=== PATIENT | male | born 2000 | race Caucasian/White ===

== ENCOUNTER 2025-06-01 15:44 | Observation (INO) ==
--- NOTE | 2025-06-01 16:38 | Emergency Department Note ---
History of Present Illness General Chief complaint: Illness Stated complaint: ENDOSCOPY TODAY, FEVER, CHILLS, BACK PAIN Time Seen by Provider: 06/01/25 16:11 History of Present Illness Provider complaint: Illness Maximum Pain Intensity: 6 25-year-old male presents emergency department for illness. Patient reports that he had an endoscopy performed at [facility] today. He states he was discharged after being told the endoscopy went fine. He states he went home and ate some food. He states that at noon he started having headache nausea and near syncope. Patient reports chills and a fever Tmax 103. He reports he took Tylenol at 1530. He reports back pain after the procedure. Home Medications Medication Instructions Recorded Confirmed Type Tylenol 0 mg PO DIRECTED PRN Pain 06/01/25 06/01/25 History Allergies Allergy/AdvReac Type Severity Reaction Status Date / Time No Known Allergies Allergy Unverified 12/20/24 09:31 Past Med/Surg History Problem List (Updated 06/01/25 @ 22:20 by Phil Bloom MD) Abdominal pain Near syncope Aspiration pneumonia (Acute) Abscess of anal or rectal region Family History (Updated 12/20/24 @ 09:33 by Latoya Wells RN) Grandmother Diabetes Heart disease Grandfather Heart disease Diabetes Social History (Updated 12/20/24 @ 09:33 by Latoya Wells RN) Smoking Status: Never smoker Hx Alcohol Use: No Hx Substance Use: No Preferred Language: Prydein[place] Communication Ability: Effective Foreign Agent Required: No Beliefs That Will Affect Care: None marital status: Single Current Living Situation: Significant Other Current Living Situation Comment: lives in apartment with significant other current occupational status: employed 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 Other Information That Helps Us Care for You: No Feels Safe at Home: Yes Safety Concerns: Feels Safe At This Time Diet: regular during the past year weight has: remained stable Assistive Devices: Glasses Physical Exam Vital Signs Vital Signs - 24 hr 06/01/25 15:44 06/01/25 16:02 06/01/25 16:15 Temperature 37.3 C Temperature Source Temporal Artery Scan Pulse Rate 121 H Pulse Rate [Right Finger] 116 H Pulse Rate from SpO2 Sensor Pulse Rhythm [Right Finger] Respiratory Rate 18 18 Respiratory Effort / Characteristics Non-Labored Respiratory Depth Normal Respiratory Pattern Regular Blood Pressure 97/66 L Blood Pressure [Left Arm] 98/72 L Blood Pressure Mean 76 Blood Pressure Mean [Left Arm] 80 Pulse Oximetry 97 97 97 Oxygen Delivery Method Room Air Room Air Room Air Sepsis Recent Fever Within 48 Hours No Sepsis New/Unexplained Change in Mental Status No Sepsis Action Taken by Nursing No Action Required 06/01/25 16:17 06/01/25 16:18 06/01/25 16:21 Temperature Temperature Source Pulse Rate 106 H 113 H 106 H Pulse Rate [Right Finger] Pulse Rate from SpO2 Sensor Pulse Rhythm [Right Finger] Respiratory Rate 19 24 Respiratory Effort / Characteristics Respiratory Depth Respiratory Pattern Blood Pressure Blood Pressure [Left Arm] Blood Pressure Mean Blood Pressure Mean [Left Arm] Pulse Oximetry Oxygen Delivery Method Sepsis Recent Fever Within 48 Hours Sepsis New/Unexplained Change in Mental Status Sepsis Action Taken by Nursing 06/01/25 16:30 06/01/25 16:30 06/01/25 16:33 Temperature Temperature Source Pulse Rate 104 H 106 H Pulse Rate [Right Finger] 108 H Pulse Rate from SpO2 Sensor 104 H 106 H Pulse Rhythm [Right Finger] Respiratory Rate 18 17 24 Respiratory Effort / Characteristics Respiratory Depth Respiratory Pattern Blood Pressure Blood Pressure [Left Arm] 122/76 Blood Pressure Mean Blood Pressure Mean [Left Arm] 91 Pulse Oximetry 96 95 94 Oxygen Delivery Method Sepsis Recent Fever Within 48 Hours Sepsis New/Unexplained Change in Mental Status Sepsis Action Taken by Nursing 06/01/25 16:52 06/01/25 16:52 06/01/25 16:52 Temperature Temperature Source Pulse Rate Pulse Rate [Right Finger] Pulse Rate from SpO2 Sensor Pulse Rhythm [Right Finger] Respiratory Rate Respiratory Effort / Characteristics Respiratory Depth Respiratory Pattern Blood Pressure 135/95 135/95 135/95 Blood Pressure [Left Arm] Blood Pressure Mean 106 106 106 Blood Pressure Mean [Left Arm] Pulse Oximetry Oxygen Delivery Method Sepsis Recent Fever Within 48 Hours Sepsis New/Unexplained Change in Mental Status Sepsis Action Taken by Nursing 06/01/25 16:52 06/01/25 16:52 06/01/25 16:54 Temperature Temperature Source Pulse Rate 113 H Pulse Rate [Right Finger] Pulse Rate from SpO2 Sensor 114 H Pulse Rhythm [Right Finger] Respiratory Rate 23 Respiratory Effort / Characteristics Respiratory Depth Respiratory Pattern Blood Pressure 135/95 135/95 Blood Pressure [Left Arm] Blood Pressure Mean 106 106 Blood Pressure Mean [Left Arm] Pulse Oximetry 95 Oxygen Delivery Method Sepsis Recent Fever Within 48 Hours Sepsis New/Unexplained Change in Mental Status Sepsis Action Taken by Nursing 06/01/25 17:00 06/01/25 17:01 06/01/25 17:01 Temperature Temperature Source Pulse Rate 107 H Pulse Rate [Right Finger] Pulse Rate from SpO2 Sensor 108 H Pulse Rhythm [Right Finger] Respiratory Rate 21 Respiratory Effort / Characteristics Respiratory Depth Respiratory Pattern Blood Pressure 122/76 122/76 Blood Pressure [Left Arm] Blood Pressure Mean 91 91 Blood Pressure Mean [Left Arm] Pulse Oximetry 96 Oxygen Delivery Method Sepsis Recent Fever Within 48 Hours Sepsis New/Unexplained Change in Mental Status Sepsis Action Taken by Nursing 06/01/25 17:01 06/01/25 17:01 06/01/25 17:01 Temperature Temperature Source Pulse Rate Pulse Rate [Right Finger] Pulse Rate from SpO2 Sensor Pulse Rhythm [Right Finger] Respiratory Rate Respiratory Effort / Characteristics Respiratory Depth Respiratory Pattern Blood Pressure 122/76 122/76 122/76 Blood Pressure [Left Arm] Blood Pressure Mean 91 91 91 Blood Pressure Mean [Left Arm] Pulse Oximetry Oxygen Delivery Method Sepsis Recent Fever Within 48 Hours Sepsis New/Unexplained Change in Mental Status Sepsis Action Taken by Nursing 06/01/25 17:01 06/01/25 17:03 06/01/25 17:12 Temperature Temperature Source Pulse Rate 103 H 106 H Pulse Rate [Right Finger] Pulse Rate from SpO2 Sensor 104 H 107 H Pulse Rhythm [Right Finger] Respiratory Rate 14 24 Respiratory Effort / Characteristics Respiratory Depth Respiratory Pattern Blood Pressure 122/76 Blood Pressure [Left Arm] Blood Pressure Mean 91 Blood Pressure Mean [Left Arm] Pulse Oximetry 97 96 Oxygen Delivery Method Sepsis Recent Fever Within 48 Hours Sepsis New/Unexplained Change in Mental Status Sepsis Action Taken by Nursing 06/01/25 17:15 06/01/25 17:15 06/01/25 17:15 Temperature Temperature Source Pulse Rate 108 H Pulse Rate [Right Finger] 108 H Pulse Rate from SpO2 Sensor 107 H Pulse Rhythm [Right Finger] Respiratory Rate 18 24 Respiratory Effort / Characteristics Respiratory Depth Respiratory Pattern Blood Pressure 126/77 Blood Pressure [Left Arm] 126/77 Blood Pressure Mean 91 Blood Pressure Mean [Left Arm] 93 Pulse Oximetry 95 96 Oxygen Delivery Method Sepsis Recent Fever Within 48 Hours Sepsis New/Unexplained Change in Mental Status Sepsis Action Taken by Nursing 06/01/25 17:15 06/01/25 17:15 06/01/25 17:15 Temperature Temperature Source Pulse Rate Pulse Rate [Right Finger] Pulse Rate from SpO2 Sensor Pulse Rhythm [Right Finger] Respiratory Rate Respiratory Effort / Characteristics Respiratory Depth Respiratory Pattern Blood Pressure 126/77 126/77 126/77 Blood Pressure [Left Arm] Blood Pressure Mean 91 91 91 Blood Pressure Mean [Left Arm] Pulse Oximetry Oxygen Delivery Method Sepsis Recent Fever Within 48 Hours Sepsis New/Unexplained Change in Mental Status Sepsis Action Taken by Nursing 06/01/25 17:15 06/01/25 17:21 06/01/25 17:30 Temperature Temperature Source Pulse Rate 115 H 107 H Pulse Rate [Right Finger] Pulse Rate from SpO2 Sensor 113 H 106 H Pulse Rhythm [Right Finger] Respiratory Rate 18 18 Respiratory Effort / Characteristics Respiratory Depth Respiratory Pattern Blood Pressure 126/77 Blood Pressure [Left Arm] Blood Pressure Mean 91 Blood Pressure Mean [Left Arm] Pulse Oximetry 96 97 Oxygen Delivery Method Sepsis Recent Fever Within 48 Hours Sepsis New/Unexplained Change in Mental Status Sepsis Action Taken by Nursing 06/01/25 17:31 06/01/25 17:31 06/01/25 17:31 Temperature Temperature Source Pulse Rate Pulse Rate [Right Finger] Pulse Rate from SpO2 Sensor Pulse Rhythm [Right Finger] Respiratory Rate Respiratory Effort / Characteristics Respiratory Depth Respiratory Pattern Blood Pressure 119/77 119/77 119/77 Blood Pressure [Left Arm] Blood Pressure Mean 83 83 83 Blood Pressure Mean [Left Arm] Pulse Oximetry Oxygen Delivery Method Sepsis Recent Fever Within 48 Hours Sepsis New/Unexplained Change in Mental Status Sepsis Action Taken by Nursing 06/01/25 17:31 06/01/25 18:29 Temperature Temperature Source Pulse Rate Pulse Rate [Right Finger] 99 H Pulse Rate from SpO2 Sensor Pulse Rhythm [Right Finger] Regular Respiratory Rate 20 Respiratory Effort / Characteristics Non-Labored Spontaneous Respiratory Depth Normal Respiratory Pattern Regular Blood Pressure 119/77 Blood Pressure [Left Arm] 120/78 Blood Pressure Mean 83 Blood Pressure Mean [Left Arm] 92 Pulse Oximetry 97 Oxygen Delivery Method Room Air Sepsis Recent Fever Within 48 Hours Sepsis New/Unexplained Change in Mental Status Sepsis Action Taken by Nursing Physical Exam HENT: Exam performed. - Head: Normocephalic and atraumatic. NECK: Normal range of motion. Neck supple. No JVD present. No rigidity. No tracheal deviation and normal range of motion present. CV: Normal rate, regular rhythm, normal heart sounds and intact distal pulses. There is no peripheral edema. Palpable radial pulses bue. PULM/CHEST: Effort normal and breath sounds normal. No respiratory distress. No stridor. He has no wheezes. He has no rales. ABD: The abdomen is soft. There is no tenderness. There is no rebound, no guarding. NEURO: He is alert and oriented to person, place, and time. He has normal strength. No cranial nerve deficit or sensory deficit. SKIN: Patient appears pale. Course Course 1611: The patient was evaluated in room B2. A complete history and physical exam was performed Cardiac monitoring: An order was placed for continuous cardiac monitoring. The monitor shows a rate of 100 with sinus rhythm interpreted by nv 1745: Vital signs stable. On reassessment patient is resting in no acute distress. No focal neurologic deficits no meningeal signs. CT of the head is within normal limits. CT of the head shows no ICH. CT of the head was conducted within 6-hour of symptom onset effectively ruling out SAH. Imaging of the chest abdomen pelvis shows no evidence of perforation but does make mention of a left-sided infiltrate. Labs are unremarkable. Patient will be treated with Unasyn and admitted for pneumonia most likely secondary to aspiration after his endoscopy today. Administered Medications Acetaminophen (Acetaminophen 500 Mg Tab) 1,000 mg PO Q8H PRN PRN Reason: Fever or headache Stop: 07/01/25 18:51 Last Admin: 06/01/25 19:00 Dose: 1,000 mg Documented By: vijay Sodium Chloride (Nss) 1,000 mls @ 125 mls/hr IV .Q8H [place] Stop: 06/02/25 18:59 Last Admin: 06/01/25 19:00 Dose: 125 mls/hr Documented By: vijay Discontinued Medications Ampicillin Sodium/Sulbactam Sodium (Unasyn) 3,000 mg in 100 mls @ 200 mls/hr IV NOW STA Stop: 06/01/25 18:12 Last Infusion: 06/01/25 18:36 Dose: Infused Documented By: vijay Admin: 06/01/25 18:09 Dose: 200 mls/hr Documented By: ludin Ioversol (Optiray 320 100ml) 90 ml IV ONCE ONE Stop: 06/01/25 16:51 Last Admin: 06/01/25 16:51 Dose: 90 ml Documented By: BRANDON Medical Decision Making Medical Records Attestation: I reviewed the patient's medical records. External medical records were obtained by Lilian manager case from the [employer] system. Patient had a endoscopy performed by Dr. Monique for Dr. Min. [place] patch in the proximal esophagus, Z-line regular, 41 cm from the incisors, normal stomach and examined duodenum. Examined portion of the mid jejunum was normal. Laboratory Data Attestation: I reviewed the patient's lab results. 06/01/25 16:24 06/01/25 16:24 Lab Results 06/01/25 06/01/25 06/01/25 Range/Units 16:24 16:32 16:53 WBC 11.49 H (4.8-10.8) K/ul RBC 4.99 (4.70-6.10) M/uL Hgb 15.4 (14.0-18.0) g/dl POC Hgb 15.6 (14.0-18.0) g/dl Hct 43.9 (42.0-52.0) % POC Hct 46 (42-52) % MCV 88.0 (80.0-100.0) fL MCH 30.9 (25.0-34.0) pg MCHC 35.1 (32.0-36.0) g/dL RDW Std Deviation 40.4 (36.4-46.3) fL RDW Coeff of Jossy 12.6 (11.5-14.5) % Plt Count 258 (130-400) K/uL MPV 9.6 (9.4-12.4) fL Immature Gran % (Auto) 0.3 % Neut % (Auto) 88.7 % Lymph % (Auto) 5.8 % Steele % (Auto) 5.0 % Eos % (Auto) 0.1 % Baso % (Auto) 0.1 % Neut # (Auto) 10.20 H (1.40-6.50) K/uL Lymph # (Auto) 0.67 L (1.20-3.40) K/uL Steele # (Auto) 0.57 (0.11-0.59) K/uL Eos # (Auto) 0.01 (0.00-0.50) K/uL Baso # (Auto) 0.01 (0.00-0.20) K/uL Immature Gran # (Auto) 0.03 (0.01-0.20) K/uL PT 10.3 (9.0-12.0) Seconds INR 1.0 (0.9-1.1) APTT 26 (21-31) Seconds PTT Ratio 1.0 VBG pH (7.36-7.41) VBG pCO2 (38-50) mmHg VBG pO2 mmHg VBG HCO3 mmol/L VBG O2 Saturation % VBG Base Excess mEq/L POC Sodium 141 (135-144) mmol/L Sodium 139 (136-145) mmol/L POC Potassium 3.7 (3.3-5.0) mmol/L Potassium 3.7 (3.5-5.1) mmol/L POC Chloride 104 (101-112) mmol/L Chloride 106 (98-107) mmol/L Carbon Dioxide 24 (21-32) mmol/L POC Total CO2 22 L (24-31) mmol/L Anion Gap 9 (3-11) POC Anion Gap 19.0 (16-25) mmol/L POC BUN 15 (7-18) mg/dl BUN 15 (6-23) mg/dl Creatinine 1.14 (0.6-1.4) mg/dl POC Creatinine 1.3 (0.6-1.3) mg/dl Est Cr Clr Drug Dosing 98.2 ml/min eGFR 90.96 BUN/Creatinine Ratio 13.2 (10-20) Glucose 140 H (70-99(Fasting)) mg/dl POC Glucose (other) 139 H (70-99) mg/dl Lactate 2.0 (0.4-2.0) mmol/L Calcium 9.7 (8.6-10.3) mg/dl POC Ioniz Calcium Chandler 1.18 (1.12-1.32) mmol/l Magnesium 1.7 (1.7-2.4) mg/dl Total Bilirubin 0.6 (0.2-1.0) mg/dl Direct Bilirubin 0.1 (0-0.2) mg/dl AST 27 (13-39) U/L ALT 30 (7-52) U/L Alkaline Phosphatase 68 (34-104) U/L Troponin I High Sens 2.3 (0-20) pg/ml Total Protein 7.6 (6.0-8.3) gm/dl Albumin 4.4 (3.4-5.0) gm/dl Procalcitonin 0.26 (0-0.5) ng/ml Urine Color Urine Appearance (Clear) Urine pH (4.5-7.5) Ur Specific Sanders (1.000-1.030) Urine Protein (Negative) Urine Glucose (UA) (Negative) Urine Ketones (Negative) Urine Blood (Negative) Urine Nitrite (Negative) Urine Bilirubin (Negative) Urine Urobilinogen (Negative) Ur Leukocyte Esterase (Negative) Urine Comment SARS-CoV-2 (PCR) NEGATIVE (Negative) Influenza Type A (PCR) Negative (Neg) Influenza Type B (PCR) Negative (Neg) RSV (RT-PCR) Negative (Neg) 06/01/25 06/01/25 Range/Units 17:40 18:03 WBC (4.8-10.8) K/ul RBC (4.70-6.10) M/uL Hgb (14.0-18.0) g/dl POC Hgb (14.0-18.0) g/dl Hct (42.0-52.0) % POC Hct (42-52) % MCV (80.0-100.0) fL MCH (25.0-34.0) pg MCHC (32.0-36.0) g/dL RDW Std Deviation (36.4-46.3) fL RDW Coeff of Jossy (11.5-14.5) % Plt Count (130-400) K/uL MPV (9.4-12.4) fL Immature Gran % (Auto) % Neut % (Auto) % Lymph % (Auto) % Steele % (Auto) % Eos % (Auto) % Baso % (Auto) % Neut # (Auto) (1.40-6.50) K/uL Lymph # (Auto) (1.20-3.40) K/uL Steele # (Auto) (0.11-0.59) K/uL Eos # (Auto) (0.00-0.50) K/uL Baso # (Auto) (0.00-0.20) K/uL Immature Gran # (Auto) (0.01-0.20) K/uL PT (9.0-12.0) Seconds INR (0.9-1.1) APTT (21-31) Seconds PTT Ratio VBG pH 7.43 H (7.36-7.41) VBG pCO2 35 L (38-50) mmHg VBG pO2 67 mmHg VBG HCO3 23 mmol/L VBG O2 Saturation 95.1 % VBG Base Excess -0.6 mEq/L POC Sodium (135-144) mmol/L Sodium (136-145) mmol/L POC Potassium (3.3-5.0) mmol/L Potassium (3.5-5.1) mmol/L POC Chloride (101-112) mmol/L Chloride (98-107) mmol/L Carbon Dioxide (21-32) mmol/L POC Total CO2 (24-31) mmol/L Anion Gap (3-11) POC Anion Gap (16-25) mmol/L POC BUN (7-18) mg/dl BUN (6-23) mg/dl Creatinine (0.6-1.4) mg/dl POC Creatinine (0.6-1.3) mg/dl Est Cr Clr Drug Dosing ml/min eGFR BUN/Creatinine Ratio (10-20) Glucose (70-99(Fasting)) mg/dl POC Glucose (other) (70-99) mg/dl Lactate (0.4-2.0) mmol/L Calcium (8.6-10.3) mg/dl POC Ioniz Calcium Chandler (1.12-1.32) mmol/l Magnesium (1.7-2.4) mg/dl Total Bilirubin (0.2-1.0) mg/dl Direct Bilirubin (0-0.2) mg/dl AST (13-39) U/L ALT (7-52) U/L Alkaline Phosphatase (34-104) U/L Troponin I High Sens (0-20) pg/ml Total Protein (6.0-8.3) gm/dl Albumin (3.4-5.0) gm/dl Procalcitonin (0-0.5) ng/ml Urine Color Yellow Urine Appearance Clear (Clear) Urine pH 7.5 (4.5-7.5) Ur Specific Sanders > 1.045 H (1.000-1.030) Urine Protein Negative (Negative) Urine Glucose (UA) Negative (Negative) Urine Ketones Negative (Negative) Urine Blood Negative (Negative) Urine Nitrite Negative (Negative) Urine Bilirubin Negative (Negative) Urine Urobilinogen Negative (Negative) Ur Leukocyte Esterase Negative (Negative) Urine Comment SARS-CoV-2 (PCR) (Negative) Influenza Type A (PCR) (Neg) Influenza Type B (PCR) (Neg) RSV (RT-PCR) (Neg) Imaging Data Attestation: I personally reviewed and interpreted this imaging study as follows: My Impression: Chest x-ray negative. Airway clear. No pneumothorax. No consolidation. No cardiomegaly or cephalization.. No free air under the diaphragm. No fractures of the skeletal structures. Radiologist's Impression: Chest CT 06/01/25 16:15 EXAMINATION: CT of the chest, abdomen and pelvis performed after the administration of IV contrast TECHNIQUE: Helical CT images from the lung apices through the symphysis pubis were obtained with contrast. Coronal and sagittal reformatted images were generated at a workstation for further assessment. Dose reduction techniques were achieved by using automatic exposure control and/or adjustment of mA and/or kV according to patient size and/or use of iterative reconstruction technique. COMPARISON: None HISTORY: Pain FINDINGS: Lines and tubes: None Mediastinum/Neck Base: No thyroid nodules. Central tracheobronchial tree is patent. Heart size is normal. No pericardial effusion. Normal thoracic vasculature. No thoracic lymphadenopathy. Oral contrast seen in the esophagus and stomach without abnormal distention. Lungs: Diffuse small nodular opacities throughout the lingula and left lower lobe seen. No pleural effusion or pneumothorax. Liver: No suspicious liver lesions. Portal veins appear patent. Gallbladder: No gallstones. No evidence of acute cholecystitis. Spleen: Normal size. Pancreas: No suspicious pancreatic lesions. The pancreatic duct is not dilated. Adrenal glands: No adrenal nodules. Kidneys: No hydronephrosis or obstructing renal stones. Bladder / Pelvic organs: Unremarkable. Bowel: No bowel obstruction. No abnormal bowel wall thickening. The appendix is unremarkable. Lymph nodes: No retroperitoneal, mesenteric, or pelvic lymphadenopathy. Peritoneum / Retroperitoneum: No free fluid or air within the abdomen. Vessels: No infrarenal aortic aneurysm. Bones and soft tissues: No acute osseous normality. IMPRESSION: Nodular opacities throughout the lingula and left lower lobe, or infectious. There is oral contrast in the esophagus and stomach. No other acute findings in the chest, abdomen or pelvis. Electronically signed by Brandon Ashraf 06-01-2025 5:19 PM Chest X-Ray 06/01/25 16:15 Chest radiograph, one view History: Sepsis Comparison: None Findings: Single AP view of the chest performed. There is a small area of patchy nodular opacity at the left lower lung or lingula. No pneumothorax. The cardiomediastinal silhouette is within normal limits. Normal pulmonary vascularity. No evidence for lymphadenopathy. No visualized bony or soft tissue abnormality. Impression: Findings suggesting infection in the left lower lung or lingula Electronically signed by Brandon Ashraf 06-01-2025 4:43 PM Abdomen/Pelvis CT 06/01/25 16:16 EXAMINATION: CT of the chest, abdomen and pelvis performed after the administration of IV contrast TECHNIQUE: Helical CT images from the lung apices through the symphysis pubis were obtained with contrast. Coronal and sagittal reformatted images were generated at a workstation for further assessment. Dose reduction techniques were achieved by using automatic exposure control and/or adjustment of mA and/or kV according to patient size and/or use of iterative reconstruction technique. COMPARISON: None HISTORY: Pain FINDINGS: Lines and tubes: None Mediastinum/Neck Base: No thyroid nodules. Central tracheobronchial tree is patent. Heart size is normal. No pericardial effusion. Normal thoracic vasculature. No thoracic lymphadenopathy. Oral contrast seen in the esophagus and stomach without abnormal distention. Lungs: Diffuse small nodular opacities throughout the lingula and left lower lobe seen. No pleural effusion or pneumothorax. Liver: No suspicious liver lesions. Portal veins appear patent. Gallbladder: No gallstones. No evidence of acute cholecystitis. Spleen: Normal size. Pancreas: No suspicious pancreatic lesions. The pancreatic duct is not dilated. Adrenal glands: No adrenal nodules. Kidneys: No hydronephrosis or obstructing renal stones. Bladder / Pelvic organs: Unremarkable. Bowel: No bowel obstruction. No abnormal bowel wall thickening. The appendix is unremarkable. Lymph nodes: No retroperitoneal, mesenteric, or pelvic lymphadenopathy. Peritoneum / Retroperitoneum: No free fluid or air within the abdomen. Vessels: No infrarenal aortic aneurysm. Bones and soft tissues: No acute osseous normality. IMPRESSION: Nodular opacities throughout the lingula and left lower lobe, or infectious. There is oral contrast in the esophagus and stomach. No other acute findings in the chest, abdomen or pelvis. Electronically signed by Brandon Ashraf 06-01-2025 5:[address] 06/01/25 16:16 CT head without contrast History: Trauma Comparison: None Technique: Using multidetector thin collimation helical acquisition technique, axial, coronal and sagittal CT images from the skull base to the vertex were obtained without intravenous contrast. Dose reduction techniques were achieved by using automatic exposure control and/or adjustment of mA and/or kV according to patient size and/or use of iterative reconstruction technique. Findings: No intracranial hemorrhage, mass-effect, or midline shift. The ventricles are proportionate to the cerebral sulci. The pacheco to white matter differentiation of the cerebral hemispheres is preserved. The basal cisterns are patent. The visualized paranasal sinuses are clear. Mastoid air cells are clear. Impression: No acute intracranial pathology. Electronically signed by Brandon Ashraf 06-01-2025 5:19 PM ECG Data Attestation: I personally reviewed and interpreted this ECG as follows: Rate (beats per minute): 107 Rhythm: + normal sinus ECG Intervals/blocks: + Normal QRS, + Normal MI and + Normal QT-c ECG ST segments: + Normal ST segments [facility] Narrative 1611: The patient was evaluated in room B2. A complete history and physical exam was performed Cardiac monitoring: An order was placed for continuous cardiac monitoring. The monitor shows a rate of 100 with sinus rhythm interpreted by nv [id number]: Vital signs stable. On reassessment patient is resting in no acute distress. No focal neurologic deficits no meningeal signs. CT of the head is within normal limits. CT of the head shows no ICH. CT of the head was conducted within 6-hour of symptom onset effectively ruling out SAH. Imaging of the chest abdomen pelvis shows no evidence of perforation but does make mention of a left-sided infiltrate. Labs are unremarkable. Patient will be treated with Unasyn and admitted for pneumonia most likely secondary to aspiration after his endoscopy today. Impression & Plan Aspiration pneumonia Discharge Plan Visit Data Chief Complaint: Illness Stated Complaint: ENDOSCOPY TODAY, FEVER, CHILLS, BACK PAIN ED Provider: Phil Bloom Discharge Problem: Aspiration pneumonia Patient Disposition: Admitted As Inpatient Condition: Fair Discharge Instructions Interventions: ED Discharge Assessment Last Done: 06/01/25 19:53 Discharge Problem: Aspiration pneumonia Qualifiers: Aspiration pneumonia type: unspecified Laterality: unspecified laterality Lung location: unspecified part of lung Qualified Code(s): J69.0 - Pneumonitis due to inhalation of food and vomit
--- NOTE | 2025-06-01 16:43 | XRay Report ---
Chest radiograph, one view History: Sepsis Comparison: None Findings: Single AP view of the chest performed. There is a small area of patchy nodular opacity at the left lower lung or lingula. No pneumothorax. The cardiomediastinal silhouette is within normal limits. Normal pulmonary vascularity. No evidence for lymphadenopathy. No visualized bony or soft tissue abnormality. Impression: Findings suggesting infection in the left lower lung or lingula Electronically signed by Brnadon Ashraf 06-01-2025 4:43 PM
[2025-06-01 16:45] LABS: Hematocrit (blood only) 43.9 % (42.0-52.0); Hemoglobin 15.4 g/dl (14.0-18.0); Immature Granulocytes # (auto) 0.03 K/uL (0.01-0.20); Immature Granulocytes % (auto) 0.3 %; Mean Corpuscular Hemoglobin 30.9 pg (25.0-34.0); Mean Corpuscular Volume 88.0 fL (80.0-100.0); Platelet Count 258 K/uL (130-400); RDW Standard Deviation 40.4 fL (36.4-46.3); Red Blood Count 4.99 M/uL (4.70-6.10); White Blood Count 11.49 K/ul (4.8-10.8)
[2025-06-01] MEDS: OPTIRAY 320 100ml IV ONE (16:51)
[2025-06-01 17:03] LABS: Alanine Aminotransferase 30.0 U/L (7-52); Albumin Level 4.4 gm/dl (3.4-5.0); Alkaline Phosphatase 68.0 U/L (34-104); Anion Gap 9.0 (3-11); Bilirubin,Total 0.6 mg/dl (0.2-1.0); Blood Urea Nitrogen 15.0 mg/dl (6-23); Calcium 9.7 mg/dl (8.6-10.3); Carbon Dioxide 24.0 mmol/L (21-32); Chloride 106.0 mmol/L (98-107); Creatinine Clr Calc Pharmacy 98.2 ml/min; Glucose 140.0 mg/dl (70-99(Fasting)); Magnesium 1.7 mg/dl (1.7-2.4); Potassium 3.7 mmol/L (3.5-5.1); Sodium 139.0 mmol/L (136-145); Total Protein 7.6 gm/dl (6.0-8.3)
[2025-06-01 17:14] LABS: INR 1.0 (0.9-1.1); Partial Thromboplastin Time 26 Seconds (21-31); Prothrombin Time 10.3 Seconds (9.0-12.0)
--- NOTE | 2025-06-01 17:20 | CT Scan Report ---
CT head without contrast History: Trauma Comparison: None Technique: Using multidetector thin collimation helical acquisition technique, axial, coronal and sagittal CT images from the skull base to the vertex were obtained without intravenous contrast. Dose reduction techniques were achieved by using automatic exposure control and/or adjustment of mA and/or kV according to patient size and/or use of iterative reconstruction technique. Findings: No intracranial hemorrhage, mass-effect, or midline shift. The ventricles are proportionate to the cerebral sulci. The pacheco to white matter differentiation of the cerebral hemispheres is preserved. The basal cisterns are patent. The visualized paranasal sinuses are clear. Mastoid air cells are clear. Impression: No acute intracranial pathology. Electronically signed by Brandon Ashraf 06-01-2025 5:19 PM
--- NOTE | 2025-06-01 17:21 | CT Scan Report ---
EXAMINATION: CT of the chest, abdomen and pelvis performed after the administration of IV contrast TECHNIQUE: Helical CT images from the lung apices through the symphysis pubis were obtained with contrast. Coronal and sagittal reformatted images were generated at a workstation for further assessment. Dose reduction techniques were achieved by using automatic exposure control and/or adjustment of mA and/or kV according to patient size and/or use of iterative reconstruction technique. COMPARISON: None HISTORY: Pain FINDINGS: Lines and tubes: None Mediastinum/Neck Base: No thyroid nodules. Central tracheobronchial tree is patent. Heart size is normal. No pericardial effusion. Normal thoracic vasculature. No thoracic lymphadenopathy. Oral contrast seen in the esophagus and stomach without abnormal distention. Lungs: Diffuse small nodular opacities throughout the lingula and left lower lobe seen. No pleural effusion or pneumothorax. Liver: No suspicious liver lesions. Portal veins appear patent. Gallbladder: No gallstones. No evidence of acute cholecystitis. Spleen: Normal size. Pancreas: No suspicious pancreatic lesions. The pancreatic duct is not dilated. Adrenal glands: No adrenal nodules. Kidneys: No hydronephrosis or obstructing renal stones. Bladder / Pelvic organs: Unremarkable. Bowel: No bowel obstruction. No abnormal bowel wall thickening. The appendix is unremarkable. Lymph nodes: No retroperitoneal, mesenteric, or pelvic lymphadenopathy. Peritoneum / Retroperitoneum: No free fluid or air within the abdomen. Vessels: No infrarenal aortic aneurysm. Bones and soft tissues: No acute osseous normality. IMPRESSION: Nodular opacities throughout the lingula and left lower lobe, or infectious. There is oral contrast in the esophagus and stomach. No other acute findings in the chest, abdomen or pelvis. Electronically signed by Brandon Ashraf 06-01-2025 5:20 PM
[2025-06-01 17:44] LABS: Influenza A virus by PCR Negative (Neg); Influenza B virus by PCR Negative (Neg); SARS CoV2 RNA(COVID-19) Ceph NEGATIVE (Negative)
[2025-06-01 17:59] LABS: Base Excess VBG -0.6 mEq/L; HCO3 VBG 23 mmol/L; Oxygen Saturation VBG 95.1 %; PCO2 VBG 35 mmHg (38-50); PO2 VBG 67 mmHg; pH VBG 7.43 (7.36-7.41)
[2025-06-01] MEDS: AMPICILLIN/SULBACTAM SOD 3,000 MG/100 ML BAG IV STA (18:09)
[2025-06-01 18:28] LABS: Appearance Urine Clear (Clear); Glucose Urine UA Negative (Negative)
[2025-06-01] MEDS: ACETAMINOPHEN 500 MG TAB PO PRN (19:00)
[2025-06-01] MEDS: SODIUM CHLORIDE 0.9% 1,000 ML IV SCH (19:00)
--- NOTE | 2025-06-01 19:04 | History & Physical Report ---
Date of Service June 01, 2025 Assessment & Plan (1) Aspiration pneumonia: Plan: Status post EGD at around 8:30 AM Ate before noon and started to have shaking chills at around that time with cough CT of the chest showed nodular opacities throughout the lingula and left lower lobe suspected of aspiration pneumonia Blood cultures are taken and he was started with intravenous Unasyn which will be continued Will give IV fluid Likely discharge tomorrow with oral antibiotic (2) Near syncope: Plan: Likely secondary to dehydration CT of the head has been negative Did not have any food or drink throughout the morning for endoscopy This happened while he was in the bathroom without any loss of consciousness Will give some IV fluid Monitor BMP in the morning (3) Abdominal pain: Plan: History of abdominal pain with food for about 2 years Endoscopy was done to evaluate/rule out intestinal disease like Crohn's He was told that thing endoscopy was unremarkable Also complained to have diarrhea and constipation associated with this pain for 2 years as well without any loss of weight Under care of GI and was advised to have follow-up appointment with them following discharge CT of the abdomen pelvis remains unremarkable DVT prophylaxis SCDs and ambulation CODE STATUS Full History of Present Illness Chief Complaint: Shaking chills with near syncope Primary Care Provider: Alex Osman MD He is a 25 years old male without significant past medical history apparently has had an endoscopy in [place] as an outpatient around 8:30 this morning. He has been suffering from abdominal pain with food with change in bowel habit consisting of constipation and diarrhea for about 2 years without any loss of weight. His endoscopy came out unremarkable and he came back from [place]. He has had his lunch and after after that around noon time he felt cough with shaking chills and while in the bathroom he was almost passing out. Noted to have fever of 103 F at home and at that point he was brought into the emergency room. Denies any chest pain and/or palpitation, did have cough without any phlegm and denies any abdominal pain nausea and/or vomiting. CT of the chest showed nodular opacities throughout the lingula and left lower lobe suggestive of aspiration pneumonia. He was started with intravenous Unasyn after taking blood cultures and was admitted to medical floor for continuation of care. Allergies Allergy/AdvReac Type Severity Reaction Status Date / Time No Known Allergies Allergy Unverified 12/20/24 09:31 Home Medications Medication Instructions Recorded Confirmed Type Tylenol 0 mg PO DIRECTED PRN Pain 06/01/25 06/01/25 History Past Med/Surg History Problem List (Updated 06/01/25 @ 18:57 by Marcy Reynolds MD) Abdominal pain Near syncope Aspiration pneumonia Abscess of anal or rectal region Family History (Updated 12/20/24 @ 09:33 by Latoya Wells, RN) Grandmother Diabetes Heart disease Grandfather Heart disease Diabetes Social History (Updated 12/20/24 @ 09:33 by Latoya Wells, RN) Smoking Status: Never smoker Preferred Language: Dominican marital status: Single current occupational status: employed current occupation: [employer] Feels Safe at Home: Yes Diet: regular during the past year weight has: remained stable Review of Systems Review of Systems: All systems reviewed and are unremarkable except as noted below Physical Exam Physical Exam: Lying in bed without any acute distress Constitutional: well developed, well nourished and average body habitus; not ill appearing Eyes: PERRL, conjunctivae normal, anicteric sclerae ENMT: external ear and nose normal, oropharynx normal Neck: trachea midline, no thyromegaly Respiratory: no respiratory distress Auscultation: + diminished lung sounds (Left midlung and base) and + crackles (Left base) Cardiovascular: Rate/Rhythm: regular rate and regular rhythm; not tachycardic Heart Sounds: normal S1 and normal S2; no murmur Extremities: no edema Gastrointestinal (Abdomen): Inspection/Auscultation: normal bowel sounds; abdomen not distended Percussion/Palpation: abdomen soft; abdomen nontender Musculoskeletal: No acute arthritis involving any of the joints Neurologic: normal touch/pain/proprioception and moves all extremities; no focal motor deficits Psychiatric: A+Ox3, euthymic affect Lymphatic: no cervical or axillary lymphadenopathy Results & Data Results & Data Vital Signs (Past 12 Hours) Vital Signs Temp Pulse Pulse Resp BP BP Pulse Ox 06/01/25 18:29 99 H 20 120/78 97 06/01/25 17:31 119/77 06/01/25 17:31 119/77 06/01/25 17:31 119/77 06/01/25 17:31 119/77 06/01/25 17:30 107 H 18 97 06/01/25 17:21 115 H 18 96 06/01/25 17:15 126/77 06/01/25 17:15 126/77 06/01/25 17:15 126/77 06/01/25 17:15 126/77 06/01/25 17:15 126/77 06/01/25 17:15 108 H 24 96 06/01/25 17:15 108 H 18 126/77 95 06/01/25 17:12 106 H 24 96 06/01/25 17:03 103 H 14 97 06/01/25 17:01 122/76 06/01/25 17:01 122/76 06/01/25 17:01 122/76 06/01/25 17:01 122/76 06/01/25 17:01 122/76 06/01/25 17:01 122/76 06/01/25 17:00 107 H 21 96 06/01/25 16:54 113 H 23 95 06/01/25 16:52 135/95 06/01/25 16:52 135/95 06/01/25 16:52 135/95 06/01/25 16:52 135/95 06/01/25 16:52 135/95 06/01/25 16:33 106 H 24 94 06/01/25 16:30 104 H 17 95 06/01/25 16:30 108 H 18 122/76 96 06/01/25 16:21 106 H 24 06/01/25 16:18 113 H 19 06/01/25 16:17 106 H 06/01/25 16:15 97 06/01/25 16:02 37.3 C 121 H 18 97/66 L 97 06/01/25 15:44 116 H 18 98/72 L 97 O2 Del Method 06/01/25 18:29 Room Air 06/01/25 17:31 06/01/25 17:31 06/01/25 17:31 06/01/25 17:31 06/01/25 17:30 06/01/25 17:21 06/01/25 17:15 06/01/25 17:15 06/01/25 17:15 06/01/25 17:15 06/01/25 17:15 06/01/25 17:15 06/01/25 17:15 06/01/25 17:12 06/01/25 17:03 06/01/25 17:01 06/01/25 17:01 06/01/25 17:01 06/01/25 17:01 06/01/25 17:01 06/01/25 17:01 06/01/25 17:00 06/01/25 16:54 06/01/25 16:52 06/01/25 16:52 06/01/25 16:52 06/01/25 16:52 06/01/25 16:52 06/01/25 16:33 06/01/25 16:30 06/01/25 16:30 06/01/25 16:21 06/01/25 16:18 06/01/25 16:17 06/01/25 16:15 Room Air 06/01/25 16:02 Room Air 06/01/25 15:44 Room Air Laboratory Results Short CBC 06/01/25 Range/Units 16:24 WBC 11.49 H (4.8-10.8) K/ul Hgb 15.4 (14.0-18.0) g/dl Hct 43.9 (42.0-52.0) % Plt Count 258 (130-400) K/uL BMP 06/01/25 16:24 Sodium 139 Potassium 3.7 Chloride 106 Carbon Dioxide 24 BUN 15 Creatinine 1.14 Glucose 140 H Calcium 9.7 Liver Function 06/01/25 Range/Units 16:24 Total Bilirubin 0.6 (0.2-1.0) mg/dl Direct Bilirubin 0.1 (0-0.2) mg/dl AST 27 (13-39) U/L ALT 30 (7-52) U/L Alkaline Phosphatase 68 (34-104) U/L Albumin 4.4 (3.4-5.0) gm/dl Urine 06/01/25 Range/Units 18:03 Urine Color Yellow Urine Appearance Clear (Clear) Urine pH 7.5 (4.5-7.5) Ur Specific Geyser > 1.045 H (1.000-1.030) Urine Protein Negative (Negative) Urine Glucose (UA) Negative (Negative) Diagnostic Findings Laboratory Results WBC 11.49 K/ul (4.8-10.8) H 06/01/25 16:24 RBC 4.99 M/uL (4.70-6.10) 06/01/25 16:24 Hgb 15.4 g/dl (14.0-18.0) 06/01/25 16:24 POC Hgb 15.6 g/dl (14.0-18.0) 06/01/25 16:32 Hct 43.9 % (42.0-52.0) 06/01/25 16:24 POC Hct 46 % (42-52) 06/01/25 16:32 MCV 88.0 fL (80.0-100.0) 06/01/25 16:24 MCH 30.9 pg (25.0-34.0) 06/01/25 16:24 MCHC 35.1 g/dL (32.0-36.0) 06/01/25 16: RDW Std Deviation 40.4 fL (36.4-46.3) 06/01/25 16: RDW Coeff of Jossy 12.6 % (11.5-14.5) 06/01/25 16:24 Plt Count 258 K/uL (130-400) 06/01/25 16: MPV 9.6 fL (9.4-12.4) 06/01/25 16:24 Immature Gran % (Auto) 0.3 % 06/01/25 16:24 Neut % (Auto) 88.7 % 06/01/25 16:24 Lymph % (Auto) 5.8 % 06/01/25 16:24 Cameron % (Auto) 5.0 % 06/01/25 16:24 Eos % (Auto) 0.1 % 06/01/25 16:24 Baso % (Auto) 0.1 % 06/01/25 16:24 Neut # (Auto) 10.20 K/uL (1.40-6.50) H 06/01/25 16:24 Lymph # (Auto) 0.67 K/uL (1.20-3.40) L 06/01/25 16:24 Cameron # (Auto) 0.57 K/uL (0.11-0.59) 06/01/25 16:24 Eos # (Auto) 0.01 K/uL (0.00-0.50) 06/01/25 16:24 Baso # (Auto) 0.01 K/uL (0.00-0.20) 06/01/25 16:24 Immature Gran # (Auto) 0.03 K/uL (0.01-0.20) 06/01/25 16:24 PT 10.3 Seconds (9.0-12.0) 06/01/25 16:24 INR 1.0 (0.9-1.1) 06/01/25 16:24 APTT 26 Seconds (21-31) 06/01/25 16:24 PTT Ratio 1.0 06/01/25 16:24 VBG pH 7.43 (7.36-7.41) H 06/01/25 17:40 VBG pCO2 35 mmHg (38-50) L 06/01/25 17:40 VBG pO2 67 mmHg 06/01/25 17:40 VBG HCO3 23 mmol/L 06/01/25 17:40 VBG O2 Saturation 95.1 % 06/01/25 17:40 VBG Base Excess -0.6 mEq/L 06/01/25 17:40 POC Sodium 141 mmol/L (135-144) 06/01/25 16:32 Sodium 139 mmol/L (136-145) 06/01/25 16:24 POC Potassium 3.7 mmol/L (3.3-5.0) 06/01/25 16:32 Potassium 3.7 mmol/L (3.5-5.1) 06/01/25 16:24 POC Chloride 104 mmol/L (101-112) 06/01/25 16:32 Chloride 106 mmol/L (98-107) 06/01/25 16:24 Carbon Dioxide 24 mmol/L (21-32) 06/01/25 16:24 POC Total CO2 22 mmol/L (24-31) L 06/01/25 16:32 Anion Gap 9 (3-11) 06/01/25 16:24 POC Anion Gap 19.0 mmol/L (16-25) 06/01/25 16:32 POC BUN 15 mg/dl (7-18) 06/01/25 16:32 BUN 15 mg/dl (6-23) 06/01/25 16:24 Creatinine 1.14 mg/dl (0.6-1.4) 06/01/25 16:24 POC Creatinine 1.3 mg/dl (0.6-1.3) 06/01/25 16:32 Est Cr Clr Drug Dosing 98.2 ml/min 06/01/25 16:24 eGFR 90.96 06/01/25 16:24 BUN/Creatinine Ratio 13.2 (10-20) 06/01/25 16:24 Glucose 140 mg/dl (70-99(Fasting)) H 06/01/25 16:24 POC Glucose (other) 139 mg/dl (70-99) H 06/01/25 16:32 Lactate 2.0 mmol/L (0.4-2.0) 06/01/25 16:24 Calcium 9.7 mg/dl (8.6-10.3) 06/01/25 16:24 POC Ioniz Calcium Chandler 1.18 mmol/l (1.12-1.32) 06/01/25 16:32 Magnesium 1.7 mg/dl (1.7-2.4) 06/01/25 16:24 Total Bilirubin 0.6 mg/dl (0.2-1.0) 06/01/25 16:24 Direct Bilirubin 0.1 mg/dl (0-0.2) 06/01/25 16:24 AST 27 U/L (13-39) 06/01/25 16:24 ALT 30 U/L (7-52) 06/01/25 16:24 Alkaline Phosphatase 68 U/L (34-104) 06/01/25 16:24 Troponin I High Sens 2.3 pg/ml (0-20) 06/01/25 16:24 Total Protein 7.6 gm/dl (6.0-8.3) 06/01/25 16:24 Albumin 4.4 gm/dl (3.4-5.0) 06/01/25 16:24 Procalcitonin 0.26 ng/ml (0-0.5) 06/01/25 16:24 Urine Color Yellow 06/01/25 18:03 Urine Appearance Clear (Clear) 06/01/25 18:03 Urine pH 7.5 (4.5-7.5) 06/01/25 18:03 Ur Specific Geyser > 1.045 (1.000-1.030) H 06/01/25 18:03 Urine Protein Negative (Negative) 06/01/25 18:03 Urine Glucose (UA) Negative (Negative) 06/01/25 18:03 Urine Ketones Negative (Negative) 06/01/25 18:03 Urine Blood Negative (Negative) 06/01/25 18:03 Urine Nitrite Negative (Negative) 06/01/25 18:03 Urine Bilirubin Negative (Negative) 06/01/25 18:03 Urine Urobilinogen Negative (Negative) 06/01/25 18:03 Ur Leukocyte Esterase Negative (Negative) 06/01/25 18:03 Urine Comment 06/01/25 18:03 SARS-CoV-2 (PCR) NEGATIVE (Negative) 06/01/25 16:53 Influenza Type A (PCR) Negative (Neg) 06/01/25 16:53 Influenza Type B (PCR) Negative (Neg) 06/01/25 16:53 RSV (RT-PCR) Negative (Neg) 06/01/25 16:[address] 06/01/25 16:15 EXAMINATION: CT of the chest, abdomen and pelvis performed after the administration of IV contrast TECHNIQUE: Helical CT images from the lung apices through the symphysis pubis were obtained with contrast. Coronal and sagittal reformatted images were generated at a workstation for further assessment. Dose reduction techniques were achieved by using automatic exposure control and/or adjustment of mA and/or kV according to patient size and/or use of iterative reconstruction technique. COMPARISON: None HISTORY: Pain FINDINGS: Lines and tubes: None Mediastinum/Neck Base: No thyroid nodules. Central tracheobronchial tree is patent. Heart size is normal. No pericardial effusion. Normal thoracic vasculature. No thoracic lymphadenopathy. Oral contrast seen in the esophagus and stomach without abnormal distention. Lungs: Diffuse small nodular opacities throughout the lingula and left lower lobe seen. No pleural effusion or pneumothorax. Liver: No suspicious liver lesions. Portal veins appear patent. Gallbladder: No gallstones. No evidence of acute cholecystitis. Spleen: Normal size. Pancreas: No suspicious pancreatic lesions. The pancreatic duct is not dilated. Adrenal glands: No adrenal nodules. Kidneys: No hydronephrosis or obstructing renal stones. Bladder / Pelvic organs: Unremarkable. Bowel: No bowel obstruction. No abnormal bowel wall thickening. The appendix is unremarkable. Lymph nodes: No retroperitoneal, mesenteric, or pelvic lymphadenopathy. Peritoneum / Retroperitoneum: No free fluid or air within the abdomen. Vessels: No infrarenal aortic aneurysm. Bones and soft tissues: No acute osseous normality. IMPRESSION: Nodular opacities throughout the lingula and left lower lobe, or infectious. There is oral contrast in the esophagus and stomach. No other acute findings in the chest, abdomen or pelvis. Electronically signed by Brandon Ashraf 06-01-2025 5:19 PM Chest X-Ray 06/01/25 16:15 Chest radiograph, one view History: Sepsis Comparison: None Findings: Single AP view of the chest performed. There is a small area of patchy nodular opacity at the left lower lung or lingula. No pneumothorax. The cardiomediastinal silhouette is within normal limits. Normal pulmonary vascularity. No evidence for lymphadenopathy. No visualized bony or soft tissue abnormality. Impression: Findings suggesting infection in the left lower lung or lingula Electronically signed by Brandon Ashraf 06-01-2025 4:43 PM Abdomen/Pelvis CT 06/01/25 16:16 EXAMINATION: CT of the chest, abdomen and pelvis performed after the administration of IV contrast TECHNIQUE: Helical CT images from the lung apices through the symphysis pubis were obtained with contrast. Coronal and sagittal reformatted images were generated at a workstation for further assessment. Dose reduction techniques were achieved by using automatic exposure control and/or adjustment of mA and/or kV according to patient size and/or use of iterative reconstruction technique. COMPARISON: None HISTORY: Pain FINDINGS: Lines and tubes: None Mediastinum/Neck Base: No thyroid nodules. Central tracheobronchial tree is patent. Heart size is normal. No pericardial effusion. Normal thoracic vasculature. No thoracic lymphadenopathy. Oral contrast seen in the esophagus and stomach without abnormal distention. Lungs: Diffuse small nodular opacities throughout the lingula and left lower lobe seen. No pleural effusion or pneumothorax. Liver: No suspicious liver lesions. Portal veins appear patent. Gallbladder: No gallstones. No evidence of acute cholecystitis. Spleen: Normal size. Pancreas: No suspicious pancreatic lesions. The pancreatic duct is not dilated. Adrenal glands: No adrenal nodules. Kidneys: No hydronephrosis or obstructing renal stones. Bladder / Pelvic organs: Unremarkable. Bowel: No bowel obstruction. No abnormal bowel wall thickening. The appendix is unremarkable. Lymph nodes: No retroperitoneal, mesenteric, or pelvic lymphadenopathy. Peritoneum / Retroperitoneum: No free fluid or air within the abdomen. Vessels: No infrarenal aortic aneurysm. Bones and soft tissues: No acute osseous normality. IMPRESSION: Nodular opacities throughout the lingula and left lower lobe, or infectious. There is oral contrast in the esophagus and stomach. No other acute findings in the chest, abdomen or pelvis. Electronically signed by Brandon Ashraf 06-01-2025 5:[address] 06/01/25 16:16 CT head without contrast History: Trauma Comparison: None Technique: Using multidetector thin collimation helical acquisition technique, axial, coronal and sagittal CT images from the skull base to the vertex were obtained without intravenous contrast. Dose reduction techniques were achieved by using automatic exposure control and/or adjustment of mA and/or kV according to patient size and/or use of iterative reconstruction technique. Findings: No intracranial hemorrhage, mass-effect, or midline shift. The ventricles are proportionate to the cerebral sulci. The pacheco to white matter differentiation of the cerebral hemispheres is preserved. The basal cisterns are patent. The visualized paranasal sinuses are clear. Mastoid air cells are clear. Impression: No acute intracranial pathology. Electronically signed by Brandon Ashraf 06-01-2025 5:19 PM Medications Administered Current Inpatient Medications Acetaminophen (Acetaminophen 500 Mg Tab) 1,000 mg PO Q8H PRN PRN Reason: Fever or headache Stop: 07/01/25 18:51 Ampicillin Sodium/Sulbactam Sodium (Unasyn) 3,000 mg in 100 mls @ 200 mls/hr IV Q6H [place] Stop: 06/07/25 00:00 Sodium Chloride (Nss) 1,000 mls @ 125 mls/hr IV .Q8H [place] Stop: 06/02/25 18:59 Code Status & VTE Plan VTE Prophylaxis Plan VTE Prophylaxis will be ordered: Yes
[2025-06-01] MEDS: AMPICILLIN/SULBACTAM SOD 3,000 MG/100 ML BAG IV SCH (23:22)
[2025-06-02 07:29] LABS: Hematocrit (blood only) 39.5 % (42.0-52.0); Hemoglobin 13.7 g/dl (14.0-18.0); Immature Granulocytes # (auto) 0.06 K/uL (0.01-0.20); Immature Granulocytes % (auto) 0.4 %; Mean Corpuscular Hemoglobin 31.1 pg (25.0-34.0); Mean Corpuscular Volume 89.8 fL (80.0-100.0); Platelet Count 237 K/uL (130-400); RDW Standard Deviation 41.6 fL (36.4-46.3); Red Blood Count 4.40 M/uL (4.70-6.10); White Blood Count 13.37 K/ul (4.8-10.8)
[2025-06-02 07:58] LABS: Anion Gap 6.0 (3-11); Blood Urea Nitrogen 12.0 mg/dl (6-23); Calcium 9.0 mg/dl (8.6-10.3); Carbon Dioxide 26.0 mmol/L (21-32); Chloride 108.0 mmol/L (98-107); Creatinine Clr Calc Pharmacy 101.8 ml/min; Glucose 103.0 mg/dl (70-99(Fasting)); Potassium 4.4 mmol/L (3.5-5.1); Sodium 140.0 mmol/L (136-145)
--- NOTE | 2025-06-02 12:25 | XRay Report ---
XR chest 2V PA/lateral CLINICAL HISTORY: Pneumonia. COMPARISON STUDY: Chest radiograph and chest CT June 01, 2025. FINDINGS: Lung volumes are normal. There is no pneumothorax or pleural effusion. Moderate left lower lobe and lingular lobe and lingular opacities are unchanged. Right lung is clear. Cardiac size is nor mal. Mediastinal contours are normal. IMPRESSION: No significant change in left lower and lingular airspace opacities consistent with pneu monia. ACT 112: Negative or not required by law. Electronically signed by: Bartolo Dominguez M.D. 06/02/2025 12:24 PM
--- NOTE | 2025-06-02 13:13 | Hospitalist Progress Note ---
Date of Service June 02, 2025 Assessment & Plan (1) Aspiration pneumonia: Plan: Status post EGD at around 8:30 AM Ate before noon and started to have shaking chills at around that time with cough CT of the chest showed nodular opacities throughout the lingula and left lower lobe suspected of aspiration pneumonia Blood cultures are taken and he was started with intravenous Unasyn which will be continued Will give IV fluid Clinically much better blood pressure remains on the lower side without any symptoms Repeat chest x-ray did not show any worsening of pneumonia White count remains elevated and blood cultures are not back yet Given recent endoscopic procedure will wait for the blood culture to come back before discharge Will continue current antibiotic and possible discharge tomorrow (2) Near syncope: Plan: Likely secondary to dehydration CT of the head has been negative Did not have any food or drink throughout the morning for endoscopy This happened while he was in the bathroom without any loss of consciousness Will give some IV fluid Monitor BMP in the morning Blood pressure remains stable on the lower side and no more dizziness (3) Abdominal pain: Plan: History of abdominal pain with food for about 2 years Endoscopy was done to evaluate/rule out intestinal disease like Crohn's He was told that thing endoscopy was unremarkable Also complained to have diarrhea and constipation associated with this pain for 2 years as well without any loss of weight Under care of GI and was advised to have follow-up appointment with them following discharge CT of the abdomen pelvis remains unremarkable Denies any abdominal pain DVT prophylaxis SCDs and ambulation CODE STATUS Full Admission and Anticipated Discharge Date Admission Date: June 01, 2025 Subjective 06/02/2025 The patient was seen and examined in medical telemetry unit in presence of the family member He has been feeling better with minimal cough and no chest pain and no palpitation Denies any fever and/or chills Review of Systems Review of Systems: All systems reviewed and are unremarkable except as noted below Physical Exam Physical Exam: Lying in bed without any acute distress Constitutional: well developed, well nourished and average body habitus; not ill appearing Eyes: PERRL, conjunctivae normal, anicteric sclerae ENMT: external ear and nose normal, oropharynx normal Neck: trachea midline, no thyromegaly Respiratory: no respiratory distress Auscultation: + diminished lung sounds (Left midlung and base) and + crackles (Left base) Cardiovascular: Rate/Rhythm: regular rate and regular rhythm; not tachycardic Heart Sounds: normal S1 and normal S2; no murmur Extremities: no edema Gastrointestinal (Abdomen): Inspection/Auscultation: normal bowel sounds; abdomen not distended Percussion/Palpation: abdomen soft; abdomen nontender Neurologic: normal touch/pain/proprioception and moves all extremities; no focal motor deficits Psychiatric: A+Ox3, euthymic affect Lymphatic: no cervical or axillary lymphadenopathy Results & Data Results & Data Vital Signs (Past 12 Hours) Vital Signs Temp Pulse Pulse Resp BP Pulse Ox O2 Del Method 06/02/25 11:39 36.7 C 85 17 117/78 98 Room Air 06/02/25 08:17 36.7 C 84 18 105/64 96 Room Air 06/02/25 08:00 81 06/02/25 02:51 36.8 C 72 20 106/71 96 Room Air Laboratory Results Short CBC 06/01/25 06/02/25 Range/Units 16:24 06:12 WBC 11.49 H 13.37 H (4.8-10.8) K/ul Hgb 15.4 13.7 L (14.0-18.0) g/dl Hct 43.9 39.5 L (42.0-52.0) % Plt Count 258 237 (130-400) K/uL BMP 06/01/25 06/02/25 16:24 06:12 Sodium 139 140 Potassium 3.7 4.4 Chloride 106 108 H Carbon Dioxide 24 26 BUN 15 12 Creatinine 1.14 1.10 Glucose 140 H 103 H Calcium 9.7 9.0 Liver Function 06/01/25 Range/Units 16:24 Total Bilirubin 0.6 (0.2-1.0) mg/dl Direct Bilirubin 0.1 (0-0.2) mg/dl AST 27 (13-39) U/L ALT 30 (7-52) U/L Alkaline Phosphatase 68 (34-104) U/L Albumin 4.4 (3.4-5.0) gm/dl Urine 06/01/25 Range/Units 18:03 Urine Color Yellow Urine Appearance Clear (Clear) Urine pH 7.5 (4.5-7.5) Ur Specific [place] > 1.045 H (1.000-1.030) Urine Protein Negative (Negative) Urine Glucose (UA) Negative (Negative) Medications Administered Current Inpatient Medications Acetaminophen (Acetaminophen 500 Mg Tab) 1,000 mg PO Q8H PRN PRN Reason: Fever or headache Stop: 07/01/25 18:51 Last Admin: 06/01/25 19:00 Dose: 1,000 mg Ampicillin Sodium/Sulbactam Sodium (Unasyn) 3,000 mg in 100 mls @ 200 mls/hr IV Q6H [place] Stop: 06/07/25 00:00 Last Infusion: 06/02/25 12:14 Dose: Infused Sodium Chloride (Nss) 1,000 mls @ 125 mls/hr IV .Q8H [place] Stop: 06/02/25 18:59 Last Admin: 06/02/25 12:55 Dose: Not Given (1) Aspiration pneumonia Aspiration pneumonia type: unspecified Laterality: unspecified laterality Lung location: unspecified part of lung Qualified Code(s): J69.0 - Pneumonitis due to inhalation of food and vomit
[2025-06-03 08:04] VITALS: BP 112/75; PULSE 82; RESP 17; TEMP 98.6; O2SAT 96
[2025-06-03 09:01] LABS: Hematocrit (blood only) 42.9 % (42.0-52.0); Hemoglobin 14.6 g/dl (14.0-18.0); Immature Granulocytes # (auto) 0.02 K/uL (0.01-0.20); Immature Granulocytes % (auto) 0.2 %; Mean Corpuscular Hemoglobin 30.5 pg (25.0-34.0); Mean Corpuscular Volume 89.6 fL (80.0-100.0); Platelet Count 259 K/uL (130-400); RDW Standard Deviation 41.6 fL (36.4-46.3); Red Blood Count 4.79 M/uL (4.70-6.10); White Blood Count 9.90 K/ul (4.8-10.8)
[2025-06-03 09:14] LABS: Anion Gap 8.0 (3-11); Blood Urea Nitrogen 13.0 mg/dl (6-23); Calcium 9.5 mg/dl (8.6-10.3); Carbon Dioxide 24.0 mmol/L (21-32); Chloride 107.0 mmol/L (98-107); Creatinine Clr Calc Pharmacy 99.9 ml/min; Glucose 103.0 mg/dl (70-99(Fasting)); Potassium 4.1 mmol/L (3.5-5.1); Sodium 139.0 mmol/L (136-145)
--- NOTE | 2025-06-03 09:57 | Hospitalist Progress Note ---
Date of Service June 03, 2025 Assessment & Plan (1) Aspiration pneumonia: Plan: Status post EGD at around 8:30 AM Ate before noon and started to have shaking chills at around that time with cough CT of the chest showed nodular opacities throughout the lingula and left lower lobe suspected of aspiration pneumonia Blood cultures are taken and he was started with intravenous Unasyn which will be continued Will give IV fluid Clinically much better blood pressure remains on the lower side without any symptoms Repeat chest x-ray did not show any worsening of pneumonia White count remains elevated and blood cultures are not back yet Given recent endoscopic procedure will wait for the blood culture to come back before discharge Remains stable without any significant symptoms and the cultures have been negative He will be discharged home on oral Augmentin for 7 more days (2) Near syncope: Plan: Likely secondary to dehydration CT of the head has been negative Did not have any food or drink throughout the morning for endoscopy This happened while he was in the bathroom without any loss of consciousness Will give some IV fluid Monitor BMP in the morning Blood pressure remains stable on the lower side and no more dizziness (3) Abdominal pain: Plan: History of abdominal pain with food for about 2 years Endoscopy was done to evaluate/rule out intestinal disease like Crohn's He was told that thing endoscopy was unremarkable Also complained to have diarrhea and constipation associated with this pain for 2 years as well without any loss of weight Under care of GI and was advised to have follow-up appointment with them following discharge CT of the abdomen pelvis remains unremarkable Denies any abdominal pain DVT prophylaxis SCDs and ambulation CODE STATUS Full Admission and Anticipated Discharge Date Admission Date: June 01, 2025 Subjective 06/02/2025 The patient was seen and examined in medical telemetry unit in presence of the family member He has been feeling better with minimal cough and no chest pain and no palpitation Denies any fever and/or chills 06/03/2025 The patient was seen and examined in medical telemetry unit in presence of the family member He has been much better without any symptoms He will be discharged home this morning Review of Systems Review of Systems: All systems reviewed and are unremarkable except as noted below Physical Exam Physical Exam: Lying in bed without any acute distress Constitutional: well developed, well nourished and average body habitus; not ill appearing Eyes: PERRL, conjunctivae normal, anicteric sclerae ENMT: external ear and nose normal, oropharynx normal Neck: trachea midline, no thyromegaly Respiratory: no respiratory distress Auscultation: + diminished lung sounds (Left midlung and base) and + crackles (Left base) Cardiovascular: Rate/Rhythm: regular rate and regular rhythm; not tachycardic Heart Sounds: normal S1 and normal S2; no murmur Extremities: no edema Gastrointestinal (Abdomen): Inspection/Auscultation: normal bowel sounds; abdomen not distended Percussion/Palpation: abdomen soft; abdomen nontender Neurologic: normal touch/pain/proprioception and moves all extremities; no focal motor deficits Psychiatric: A+Ox3, euthymic affect Lymphatic: no cervical or axillary lymphadenopathy Results & Data Results & Data Vital Signs (Past 12 Hours) Vital Signs Temp Pulse Resp BP Pulse Ox O2 Del Method 06/03/25 08:03 37.0 C 82 17 112/75 96 Room Air 06/03/25 03:49 37.2 C 78 18 102/65 94 Room Air 06/02/25 23:14 37.2 C 89 18 125/73 96 Room Air Laboratory Results Short CBC 06/03/25 Range/Units 08:20 WBC 9.90 (4.8-10.8) K/ul Hgb 14.6 (14.0-18.0) g/dl Hct 42.9 (42.0-52.0) % Plt Count 259 (130-400) K/uL BMP 06/03/25 08:20 Sodium 139 Potassium 4.1 Chloride 107 Carbon Dioxide 24 BUN 13 Creatinine 1.12 Glucose 103 H Calcium 9.5 Medications Administered Current Inpatient Medications Acetaminophen (Acetaminophen 500 Mg Tab) 1,000 mg PO Q8H PRN PRN Reason: Fever or headache Stop: 07/01/25 18:51 Last Admin: 06/02/25 15:46 Dose: 1,000 mg Amoxicillin/Clavulanate Potassium (Amoxicillin/Clavulanate 875 Mg Tab) 1 tab PO BIDM [facility]; Protocol Stop: 06/08/25 16:59 (1) Aspiration pneumonia Aspiration pneumonia type: unspecified Laterality: unspecified laterality Lung location: unspecified part of lung Qualified Code(s): J69.0 - Pneumonitis due to inhalation of food and vomit
--- NOTE | 2025-06-03 14:52 | Discharge Summary ---
Date of Service June 03, 2025 Admission HPI Per Admitting Provider He is a 25 years old male without significant past medical history apparently has had an endoscopy in [place] as an outpatient around 8:30 this morning. He has been suffering from abdominal pain with food with change in bowel habit consisting of constipation and diarrhea for about 2 years without any loss of weight. His endoscopy came out unremarkable and he came back from [place]. He has had his lunch and after after that around noon time he felt cough with shaking chills and while in the bathroom he was almost passing out. Noted to have fever of 103 F at home and at that point he was brought into the emergency room. Denies any chest pain and/or palpitation, did have cough without any phlegm and denies any abdominal pain nausea and/or vomiting. CT of the chest showed nodular opacities throughout the lingula and left lower lobe suggestive of aspiration pneumonia. He was started with intravenous Unasyn after taking blood cultures and was admitted to medical floor for continuation of care. Admission Exam Per Admitting Provider Physical Exam: Lying in bed without any acute distress Constitutional: well developed, well nourished and average body habitus; not ill appearing Eyes: PERRL, conjunctivae normal, anicteric sclerae ENMT: external ear and nose normal, oropharynx normal Neck: trachea midline, no thyromegaly Respiratory: no respiratory distress Auscultation: + diminished lung sounds (Left midlung and base) and + crackles (Left base) Cardiovascular: Rate/Rhythm: regular rate and regular rhythm; not tachycardic Heart Sounds: normal S1 and normal S2; no murmur Extremities: no edema Gastrointestinal (Abdomen): Inspection/Auscultation: normal bowel sounds; abdomen not distended Percussion/Palpation: abdomen soft; abdomen nontender Musculoskeletal: No acute arthritis involving any of the joints Neurologic: normal touch/pain/proprioception and moves all extremities; no focal motor deficits Psychiatric: A+Ox3, euthymic affect Lymphatic: no cervical or axillary lymphadenopathy Principal Diagnosis Aspiration pneumonia Discharge Exam Lying in bed without any acute distress Constitutional well developed, well nourished and average body habitus; not ill appearing Eyes PERRL, conjunctivae normal, anicteric sclerae ENMT external ear and nose normal, oropharynx normal Neck trachea midline, no thyromegaly Respiratory no respiratory distress Auscultation: + diminished lung sounds (Left midlung and base) and + crackles (Left base) Cardiovascular Rate/Rhythm: regular rate and regular rhythm; not tachycardic Heart Sounds: normal S1 and normal S2; no murmur Extremities: no edema Gastrointestinal (Abdomen) Inspection/Auscultation: normal bowel sounds; abdomen not distended Percussion/Palpation: abdomen soft; abdomen nontender Neurologic normal touch/pain/proprioception and moves all extremities; no focal motor deficits Psychiatric A+Ox3, euthymic affect Lymphatic no cervical or axillary lymphadenopathy Discharge Data Allergies Allergy/AdvReac Type Severity Reaction Status Date / Time No Known Allergies Allergy Unverified 12/20/24 09:31 Consultations 06/01/25 17:44 ED Decision to Admit Stat Ordered Studies 06/01/25 16:15 CT chest diagnostic w con Stat 06/01/25 16:16 CT abd pelvis IV con only Stat CT head/brain wo con Stat Hospital Course (1) Aspiration pneumonia: Status post EGD at around 8:30 AM Ate before noon and started to have shaking chills at around that time with cou gh CT of the chest showed nodular opacities throughout the lingula and left lower lobe suspected of aspiration pneumonia Blood cultures are taken and he was started with intravenous Unasyn which will be continued Will give IV fluid Clinically much better blood pressure remains on the lower side without any symptoms Repeat chest x-ray did not show any worsening of pneumonia White count remains elevated and blood cultures are not back yet Given recent endoscopic procedure will wait for the blood culture to come back before discharge Remains stable without any significant symptoms and the cultures have been negative He will be discharged home on oral Augmentin for 7 more days (2) Near syncope: Likely secondary to dehydration CT of the head has been negative Did not have any food or drink throughout the morning for endoscopy This happened while he was in the bathroom without any loss of consciousness Will give some IV fluid Monitor BMP in the morning Blood pressure remains stable on the lower side and no more dizziness (3) Abdominal pain: History of abdominal pain with food for about 2 years Endoscopy was done to evaluate/rule out intestinal disease like Crohn's He was told that thing endoscopy was unremarkable Also complained to have diarrhea and constipation associated with this pain for 2 years as well without any loss of weight Under care of GI and was advised to have follow-up appointment with them following discharge CT of the abdomen pelvis remains unremarkable Denies any abdominal pain DVT prophylaxis SCDs and ambulation CODE STATUS Full Total Time Total Time Spent Total Time Spent (In Minutes): 35 Minutes Discharge Plan Discharge Items Patient Disposition: Home - Self-Care Reason For Visit: ASPIRATION PNEUMONIA Discharge Diagnosis: Aspiration pneumonia Condition on Discharge: Good Activity: Resume your previous activity Non-emergency contact: Primary Care Provider Call non-emergency contact if: you have any medication questions and your symptoms worsen Follow-up/Referrals: Alex Osman MD [Primary Care Provider] - ( your doctor's office will give you a call tomorrow with an appointment within 7 days) Diet: Regular Addtl Attending Provider Instructions: Please finish the course of antibiotic You can try some probiotics [id number] while you are on antibiotic Pending Studies at Discharge: No Stand-Alone Forms: My Given Goods, Smoking Cessation Medications and DC Order Prescriptions: New amoxicillin-pot clavulanate 875-125 mg Tablet 1 tab PO BIDM Qty: 14 0RF Continued Tylenol 0 mg PO DIRECTED PRN (Reason: Pain) Patient Comments: otc unknown dose Discharge Orders: Discharge Order (Routine); Ordered 06/03/25 Ordered By: Marcy Reynolds Admission Data Admit Date/Time: 06/01/25 18:45 Attending Provider: Marcy Reynolds Admit Provider: Marcy Reynolds Primary Care Provider: Alex Osman Other Providers: Marcy Reynolds Other Interventions: Discharge Summary Assessment (RN) Last Done: 06/03/25 10:17
[2025-06-03] MEDS ORDERED: AMOXICILLIN/CLAVULANATE 875 MG TAB PO SCH (17:00)
--- NOTE | 2025-06-04 09:04 | Electrocardiogram Report ---
Test Reason : Blood Pressure : */* mmHG Vent. Rate : 107 BPM Atrial Rate : 107 BPM P-R Int : 130 ms QRS Dur : 96 ms QT Int : 312 ms P-R-T Axes : 63 65 37 degrees QTcB Int : 416 ms Sinus tachycardia Otherwise normal ECG No previous ECGs available Confirmed by Joey Molina ([id number]) on 06/04/2025 9:04:22 AM Referred By: REFERRED SELF Confirmed By: Joey Molina
--- NOTE | 2025-06-05 08:49 | Coding Query ---
CODING QUERY To promote full compliance with coding requirements relating to patient care, provider participation is requested in all cases of apple press operator uncertainty. Please assist us with the question(s) below: Coding Question(s): Pt admitted with aspiration pneumonia several hours after having an outpatient EGD. Please check below the phrase that describes the aspiration pneumonia. Thank you . Rafiq Harper [facility] Physician's Response(s): The Aspiration Pneumonia is a anesthetic complication of the EGD The Aspiration Pneumonia is not a complication of the EGD anesthesia _X Other/ Please document: Don't know. Principal Diagnosis: "that condition established after study, to be chiefly responsible for occasioning the admission of the patient to the hospital for care." Co-Existing Principal Diagnosis: "when two or more diagnoses equally meet the criteria for principal diagnosis as determined by the circumstances of admission, diagnostic work up, and/or therapy provided, and the Alphabetic Index, Tabular List, or another coding guideline does not provide sequencing direction, any one of the diagnoses may be sequenced first." "When the physician has documented what appears to be a current diagnosis in the body of the record, but has not included the diagnosis in the final diagnostic statement, the physician should be asked whether the diagnosis should be added." (Source Coding [facility] 2 QTR90. p3-4) [facility]
== END 2025-06-03 11:05 | disposition home or self-care (01) | DRG 179 ==
LOC: ED 15:44 → 2N 18:45 → INTOOBSV 18:45 → 2N 19:53